=== PATIENT | female | born 1955 | race Caucasian/White ===

== ENCOUNTER 2019-09-07 18:46 | Emergency (ER) | payer MEDICAID, SELFPAY ==
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
[2019-09-07 18:47] VITALS: BP 135/92; PULSE 119; RESP 16; TEMP 36.6; O2SAT 99
--- NOTE | 2019-09-07 18:52 | NUR.NOTE ---
Nursing Note: unsure of home meds, unable to verify, does not take any blood thinners but does take a baby aspirin.
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
[2019-09-07] MEDS: Acetaminophen 500 MG TAB 1000 MG PO (18:59)
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
== END 2019-09-07 19:35 | disposition home or self-care (01) ==
LOC: ER 20:04
PROVIDERS: Emergency Provider Emergency Medicine; PCP Internal Medicine
DX: S20.222A Contusion of left back wall of thorax, initial encounter (principal); V58.6XXA Passenger in pick-up truck or van injured in noncollision transport accident in traffic accident, initial encounter
CPT/HCPCS: 99283; 71046

== ENCOUNTER 2019-09-07 20:15 | Emergency (ER) | payer MEDICAID, SELFPAY ==
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
[2019-09-07] MEDS: Normal Saline Flush 10 ML SYR IVP (20:20)
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
[2019-09-07] MEDS: Omnipaque 350 MG/ML 100 ML BTL IJ (20:31)
[2019-09-07] MEDS: Normal Saline 1,000 ML 150 ML IV (20:35)
[2019-09-07] MEDS: Ondansetron 4 MG/2 ML VIAL IVP (20:41)
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
[2019-09-07 21:04] LABS: ALT 18 U/L (14-59); AST 12 U/L (15-37); Albumin 3.7 g/dL (3.4-5.0); Alkaline Phosphatase 155 U/L (46-116); BUN 21 mg/dL (7-18); Bilirubin, Total 0.4 mg/dL (0.2-1.0); CREATININE 1.75 mg/dL (0.55-1.02); Calcium 8.9 mg/dL (8.5-10.1); Chloride 103 mmol/L (98-107); Estimated GFR 29.26 (mL/min/1.73m2); Glucose 138 mg/dL (74-106); Potassium 3.9 mmol/L (3.5-5.1); Sodium 143 mmol/L (136-145); Total Protein 8.5 g/dL (6.4-8.2)
[2019-09-07 21:05] LABS: Troponin I < 0.05 ng/Ml (<0.06)
[2019-09-07 21:09] LABS: Abs Immature Grans 0.15 k/cumm (0.0-0.09); Absolute Basophil Count 0.04 k/cumm (0.0-0.2); Absolute Eosinophil Count 0.04 k/cumm (0.0-0.7); Absolute Lymphocyte Count 1.44 k/cumm (1.2-3.4); Basophils % 0.2; Eosinophils % 0.2; HCT 44.1 % (36.0-46.0); HGB 14.2 g/dL (12.0-15.5); Immature Grans % 0.7; Mean Corp. HGB Concentration 32.2 g/dL (32.0-36.0); Mean Corpuscular Hemoglobin 26.9 pg (27.0-33.0); Mean Corpuscular Volume 83.5 fL (80-95); Mean Platelet Volume 11.8 fL (8.0-11.0); Monocytes % 5.7; Neutrophils % 86.2; Platelet Count 389 x1000/uL (130-400); RBC 5.28 m/cumm (4.00-5.20); RBC Distribution Width 14.5 % (11.7-14.6); White Blood Cell Count 20.64 k/cumm (4.4-10.8)
[2019-09-07 21:11] LABS: Absolute Monocyte Count 1.18 k/cumm (0.11-0.7); Absolute Neutrophil Count 17.79 k/cumm (1.2-6.7)
--- NOTE | 2019-09-08 10:40 | NUR.NOTE ---
Nursing Note: Referral faxed to [facility] for follow up per radiologist report. Catrachita Veras.
== END 2019-09-07 21:35 | disposition home or self-care (01) ==
PROVIDERS: Emergency Provider Physician Assistant; PCP Internal Medicine
DX: R42 Dizziness and giddiness (principal); R11.0 Nausea; R94.4 Abnormal results of kidney function studies; D72.829 Elevated white blood cell count, unspecified; V58.6XXA Passenger in pick-up truck or van injured in noncollision transport accident in traffic accident, initial encounter; S20.222A Contusion of left back wall of thorax, initial encounter
CPT/HCPCS: 36415; 74177; 80053; 93005; 96361; 96374; 99283; 99285; 71046; 71260; 84484; 85025; 93010; 99284; J2405; J3490